=== PATIENT | female | born 1990 | race American Indian/Alaskan Native ===

== ENCOUNTER 2017-01-21 07:37 | Inpatient (IN) | payer OTHER ==
[2017-01-21] MEDS ORDERED: NACL 0.9% 1000 ML 1,000 ML ONE (07:47)
[2017-01-21] MEDS ORDERED: SUBLIMAZE IV ONE (07:56)
[2017-01-21] MEDS ORDERED: NACL 0.9% 1000 ML 1,000 ML IV ONE (07:56)
--- NOTE | 2017-01-21 08:06 | Emergency Department Report ---
ED HPI - General Chief complaint: Vaginal Bleeding Stated complaint: VAGINAL BLEED Time Seen by Provider: 01/21/17 07:56 Source: patient, EMS Mode of arrival: Stretcher Limitations: No Limitations - History of Present Illness Initial comments: 26-year-old female presents to the emergency department via EMS complaining of abdominal pain and vaginal bleeding. Patient states she began having generalized abdominal pain and vaginal bleeding yesterday afternoon. She states she is approximately 8 weeks , . Pain is described as sharp in nature and does not radiate. She denies nausea or vomiting. Upon arrival in the emergency department, the patient had a syncopal episode and was placed into an examination room. There are no other complaints. MD Complaint: abdominal pain, vaginal bleeding -: Sudden, days(s) (1) Location: abdomen Radiation: none Severity: moderate Severity scale (0 -10): 7 Quality: sharp Consistency: constant Improves with: none Worsens with: none Associated symptoms: vaginal bleeding, syncope Vaginal bleeding: heavy :: Yes Number of weeks : 8 OB History - Current : no complications OB History - Previous Pregnancies: no complications Pre- care: none - Related Data : 5 Para: 4 Home Medications Medication Instructions Recorded Confirmed Last Taken No Known Home Medications [No 01/21/17 01/21/17 Unknown Reported Home Medications] Allergies Allergy/AdvReac Type Severity Reaction Status Date / Time No Known Allergies Allergy Verified 01/21/17 07:55 ED Review of Systems ROS: Stated complaint: VAGINAL BLEED Other details as noted in HPI Comment: All other systems reviewed and negative Cardiovascular: syncope Gastrointestinal: abdominal pain Genitourinary: as per HPI (vaginal bleeding) ED Past Medical Hx - Past Medical History Previous Medical History?: Yes Hx Seizures: Yes - Surgical History Past Surgical History?: No - Family History Family history: no significant - Social History Smoking Status: Never Smoker Substance Use Type: None - Medications Home Medications: Home Medications Medication Instructions Recorded Confirmed Last Taken Type No Known Home Medications [No 01/21/17 01/21/17 Unknown History Reported Home Medications] ED Physical Exam - General Limitations: No Limitations General appearance: alert, in distress (mild distress secondary to pain) - Head Head exam: Present: atraumatic, normocephalic - Eye Eye exam: Present: normal appearance, PERRL, EOMI - ENT ENT exam: Present: normal exam, normal orophraynx, mucous membranes moist - Neck Neck exam: Present: normal inspection, full ROM. Absent: tenderness - Respiratory Respiratory exam: Present: normal lung sounds bilaterally. Absent: respiratory distress - Cardiovascular Cardiovascular Exam: Present: normal rhythm, tachycardia, normal heart sounds - GI/Abdominal GI/Abdominal exam: Present: soft, tenderness (mild generalized tenderness to palpation, worse on right), guarding (voluntary), normal bowel sounds. Absent: distended, rebound - Extremities Exam Extremities exam: Present: normal inspection, full ROM. Absent: tenderness - Back Exam Back exam: Present: normal inspection, full ROM. Absent: tenderness - Neurological Exam Neurological exam: Present: alert, oriented X3. Absent: motor sensory deficit - Skin Skin exam: Present: warm, dry, intact ED Course Vital Signs 01/21/17 01/21/17 01/21/17 07:39 07:40 07:45 Temperature 98.2 F Pulse Rate 164 H 120 H Respiratory 20 Rate Blood Pressure 91/46 93/48 O2 Sat by Pulse 95 95 Oximetry 01/21/17 01/21/17 08:00 08:15 Temperature Pulse Rate 122 H 107 H Respiratory 22 17 Rate Blood Pressure 116/61 107/64 O2 Sat by Pulse 99 99 Oximetry - Procedure Description Procedures done: Bedside ultrasound performed by me. Transabdominal pelvic ultrasound performed. Uterus identified, but no definite IUP noted. Pro- placed in the right upper quadrant and a moderate amount of free fluid is identified. ED Medical Decision Making - Lab Data Result diagrams: 01/21/17 08:44 01/21/17 Unknown - Medical Decision Making Patient's presentation and bedside ultrasound findings are concerning for ruptured ectopic . Checking labs. Giving IV fluids. Consulting OB/ [employer]. 0812--discussed the case with Dr. Sequeira, SOCIAL WORK MSW. She states she is getting ready to scrub in for a case. She is recommending resuscitation of the patient and to let her know when the hCG and hemoglobin are back. She is notifying the OR. 0914--patient's hemoglobin is 6.1. 2 units of packed red cells have been ordered. Dr. Sequeira has been updated. Patient is to be taken to the OR. - Differential Diagnosis abdominal pain, ectopic , ovarian torsion Critical Care Time: Yes Critical care time in (mins) excluding proc time.: 45 Critical care attestation.: If time is entered above; I have spent that time in minutes in the direct care of this critically ill patient, excluding procedure time. Critical Care Time: The high probability of a clinically significant, sudden or life threatening deterioration of the cardiovascular and genitourinary system(s) required my full and direct attention, intervention and personal management. The aggregate critical care time was 45 minutes. This time is in addition to time spent performing reported procedures but includes the following: [x] Data Review and interpretation [x] Patient assessment and monitoring of vital signs [x] Documentation [x] Medication orders and management ED Disposition Clinical Impression: Hemoperitoneum due to rupture of right tubal ectopic Disposition: OP ADMITTED IP TO THIS HOSP Is pt being admited?: Yes Condition: Stable Time of Disposition: 09:15
[2017-01-21 08:29] LABS: BUN/Creatinine Ratio 7.69; Calcium 8.6 mg/dL (8.4-10.2); Chloride 97.6 mmol/L (98-107); Potassium 4.2 mmol/L (3.6-5.0)
[2017-01-21 08:47] LABS: INR 1.4 (0.87-1.13)
[2017-01-21 09:02] LABS: Basophils % (Auto) 0.2 % (0.0-1.8); Mean Corpuscular HGB Conc 29 % (30-34); Mean Corpuscular Volume 75 fl (79-97); Platelet Count 257 K/mm3 (140-440); Red Blood Count 2.97 M/mm3 (3.65-5.03); Red Cell Distribution Width 18.4 % (13.2-15.2); White Blood Count 19.1 K/mm3 (4.5-11.0)
[2017-01-21 09:03] LABS: Hematocrit 22.3 % (30.3-42.9); Hemoglobin 6.4 gm/dl (10.1-14.3); Mean Corpuscular Hemoglobin 22 pg (28-32)
[2017-01-21] MEDS ORDERED: NACL 0.9% 500 ML 500 ML IV ONE (09:13)
[2017-01-21] MEDS ORDERED: QUELICIN ONE (09:19)
[2017-01-21] MEDS ORDERED: DIPRIVAN 10 MG/ML IV ONE (09:20)
[2017-01-21] MEDS ORDERED: DILAUDID ONE ×2 (09:20→14:53)
[2017-01-21] MEDS ORDERED: NACL 0.9% IR ONE (09:36)
[2017-01-21] MEDS ORDERED: MARCAINE 0.5% INFILTRATI ONE ×2 (09:36)
--- NOTE | 2017-01-21 09:41 | Anesthesia Consultation ---
Anesthesia Consult and Med Hx Date of service: 01/21/17 - Airway Anesthetic Teeth Evaluation: Good ROM Head & Neck: Adequate Mental/Hyoid Distance: Adequate Mallampati Class: Class II Intubation Access Assessment: Probably Good - Pulmonary Exam CTA: Yes - Cardiac Exam Cardiac Exam: RRR - Pre-Operative Health Status ASA Pre-Surgery Classification: ASA2, Emergency Proposed Anesthetic Plan: General - Pre-Anesthesia Comment Pre-Anesthesia Comments: overbite - Pulmonary Hx Smoking: No - Cardiovascular System Hx Hypertension: No - Central Nervous System Hx Seizures: Yes
--- NOTE | 2017-01-21 09:42 | Anesthesia Day of Surgery ---
Anesthesia Day of Surgery - Day of Surgery Patient Examined: Yes Patient H&P Reviewed: Yes Patient is NPO: No (recent water)
[2017-01-21] MEDS ORDERED: NACL BACTERIOSTATIC INFILTRATI ONE (09:53)
[2017-01-21] MEDS ORDERED: ZOFRAN IV PRN ×2 (10:00→12:43)
[2017-01-21] MEDS ORDERED: ANCEF/STERILE WATER 2 GM/20 ML 2 GM/20 ML SYRINGE IV NR (10:00)
[2017-01-21] MEDS ORDERED: PEPCID IV NR (10:00)
[2017-01-21] MEDS ORDERED: REGLAN IV NR (10:00)
[2017-01-21] MEDS ORDERED: LACTATED RINGERS 1,000 ML IV SCH (10:00)
[2017-01-21] MEDS ORDERED: XYLOCAINE MPF 2% ONE (10:01)
--- NOTE | 2017-01-21 10:13 | Ultrasound Report ---
ULTRASOUND OB LESS THAN 14 WEEKS FETUS ULTRASOUND OB TRANSVAGINAL HISTORY: Abdominal pain during , vaginal bleeding, beta hCG level of 3385. TECHNIQUE: Transabdominal and transvaginal imaging. FINDINGS: The most impressive part of this examination is the large amount of pelvic fluid containing debris. The uterus measures 9 x 5 x 6 cm. The endometrium measures 12 mm. No intrauterine gestational sac is appreciated. The ovaries are not visualized. IMPRESSION: No intrauterine is visualized. There is a large amount of complex fluid in the pelvis. This may represent a ruptured ectopic although it is not clearly identified on ultrasound. Please correlate with the patient's clinical presentation. Close interval followup is recommended. Consider consultation with DERMATOLOGY NURSE PRACTITIONER.
[2017-01-21] MEDS ORDERED: ceFAZolin 2 GM in NACL 0.9% 100 ML IV ONE (10:18)
--- NOTE | 2017-01-21 10:23 | Short Stay Summary ---
Short Stay Documentation Date of service: 01/21/17 Narrative H&P: Patient is a 26 year old who presented to the ED with severe pelvic pain and vaginal bleeding with a known at approximately 8 weeks. Patient states that the pain started on yesterday. - History Past Medical History: seizures (as a child) Past Surgical History: No surgical history Social history: single - Allergies and Medications Current Medications: Allergies No Known Allergies Allergy (Verified 01/21/17 07:55) Home Medications Medication Instructions Recorded Confirmed Last Taken Type No Known Home Medications [No 01/21/17 01/21/17 Unknown History Reported Home Medications] Active Medications Acetaminophen/Hydrocodone Bitart (Preston 5/325) 2 each PO ONCE PRN PRN Reason: Pain, Moderate (4-6) Stop: 01/21/17 11:01 Famotidine (Pepcid) 20 mg IV PREOP NR Stop: 01/21/17 13:00 Last Admin: 01/21/17 09:57 Dose: 20 mg Hydromorphone HCl (Dilaudid) 0.5 mg IV Q10MIN PRN PRN Reason: Pain , Severe (7-10) Stop: 01/21/17 15:00 Lactated Ringer's (Lactated Ringers) 1,000 mls @ 100 mls/hr IV DIRECT KIRBY Cefazolin Sodium 2 gm/ Sodium (Chloride) 100 mls @ 200 mls/hr IV ONCE ONE Stop: 01/21/17 10:47 Metoclopramide HCl (Reglan) 10 mg IV PREOP NR Stop: 01/21/17 15:00 Last Admin: 01/21/17 09:57 Dose: 10 mg - Physical exam General appearance: mild distress Lungs: Clear to auscultation, Normal air movement Breasts: deferred Heart: Regular rate, Normal S1, Normal S2 Gastrointestinal: normal, normoactive bowel sounds Female Genitourinary: normal Rectal Exam: deferred Extremities: No edema - Brief post op/procedure progress note Date of procedure: 01/21/17 Pre-op diagnosis: Ruptured Ectopic Post-op diagnosis: same (with cornual ectopic) Procedure: Laparoscopic Right Salpingectomy with partial resection of cornua Anesthesia: GETA Findings: 2200 cc of blood and clot in pelvis and abdomen, otherwise normal uterus, tubes , ovaries Surgeon: NESTOR JAMIL Estimated blood loss: other (200) Pathology: list (right tube and products of conception) Specimen disposition: to lab Condition: stable - Hospital course Hospital course: Patient continued to show signs of hypotension throughout surgery. will admit overnight for observation and retesting of h&H. - Disposition Condition at discharge: Stable Short Stay Discharge Plan Follow up with: PRIMARY CARE, [Primary Care Provider] - 3-5 Days Prescriptions: Ibuprofen [Motrin] 800 mg PO Q8HR PRN #40 tablet PRN Reason: Pain oxyCODONE /ACETAMINOPHEN [Percocet 5/325] 2 tab PO Q6HR PRN #40 tablet PRN Reason: Pain
--- NOTE | 2017-01-21 10:27 | Admit Criteria Form ---
Admission Criteria Documentation: OBSTETRIC AND GYNECOLOGIC DISEASE GRG Clinical Indications for Admission to Inpatient Care (Place 'X' for any and all applicable criteria): Hospital admission is needed for appropriate care of the patient because of 1 or more of the following (1)(2)(3): [ ]I. Hemodynamic instability, as indicated by 1 or more of the following (1)( 2)(3)(4)(5): [ ]a) Vital signs or other findings not as expected for chronic patient condition or baseline [ ]b) Instability indicated by 1 or more of the following: [ ]i) Hypotension [ ]ii) Symptomatic tachycardia unresponsive to treatment (eg, analgesia, fluids, sedation as indicated) [ ]iii) Inadequate perfusion indicated by 1 or more of the following: [ ]A. Lactic acidosis (greater than 2 mmol/ L) [ ]B. New abnormal capillary refill ( greater than 3 seconds) [ ]C. Reduced urine output [ ]D. New altered mental status [ ]iv) Orthostatic vital sign changes unresponsive to treatment (eg, fluids) [ ]v) Multiple IV fluid boluses required to maintain adequate blood pressure or perfusion [ ]vi) IV inotropic or vasopressor medication required to maintain adequate blood pressure or perfusion [ ]II. Obstetric infection requiring hospitalization indicated by 1 or more of the following(13)(14): [ ]a) Chorioamnionitis [ ]b) Endometritis (except mild endometritis) [ ]c) Pelvic abscess [ ]d) Peritonitis [ ]e) Septic pelvic thrombophlebitis [ ]III. Amniotic fluid or pulmonary embolism(4)(5)(6) [X]IV. Suspected peritonitis or ectopic requiring monitoring beyond scope of 24 hours or observation care(7)(8) [ ]V. compromise requiring hospitalization indicated by ALL of the following(9)(10): [ ]a) compromise indicated by 1 or more of the following(11): [ ]i) Abnormal heart rate monitoring [ ]ii) Abnormal contraction stress test [ ]iii) Abnormal biophysical profile [ ]iv) Abnormal Doppler flow in vessels (ie, Doppler velocimetry) (12) [ ]b) Persistence of compromise indicators during evaluation and observation monitoring [ ]. Ovarian hyperstimulation syndrome requiring hospitalization[A] indicated by ALL of the following(15): [ ]a) Recent ovarian stimulation with gonadotropins, or evidence on ultrasound of spontaneous emergence of large number of ovarian follicles [ ]b) Evidence of severe ovarian hyperstimulation syndrome indicated by 1 or more of the following: [ ]i) Abdominal pain unresponsive to oral therapy [ ]ii) Acute respiratory distress syndrome [ ]iii) Electrolyte imbalance ( eg, hyponatremia, hyperkalemia) [ ]iv) Elevated liver enzymes [ ]v) Evidence of thromboembolism [ ]vi) Hemoconcentration (hematocrit greater than 45 % (0.45)) [ ]vii) Inability to maintain oral intake adequate to prevent hemoconcentration [ ]viii) Marked hypotension from baseline (eg, SBP 20 mmHg below patients usual pressure) [ ]ix) Oliguria or anuria [ ]x) Ovarian torsion [ ]xi) Pleural or pericardial effusion on x-ray or echocardiogram [ ]xii) Rapid increase in serum creatinine to greater than 1.2 mg/dL (106 micromoles/L) or creatinine clearance less than 50 mL/min/1.73m2 (0.84 mL/ sec/1.73m2) [ ]xiii) Ruptured ovarian cyst with hemorrhage [ ]xiv) Severe abdominal pain or peritoneal signs [ ]xv) Tense ascites that cannot be managed with paracentesis in outpatient setting [ ]VII.Pelvic infection requiring hospitalization indicated by 1 or more of the following (16): [ ]a) Outpatient treatment has failed or is not appropriate (eg, inpatient monitoring required) [ ]b) Pelvic abscess [ ]c) Surgical emergency cannot be excluded (eg, rigid abdomen) [ ]d) Vomiting precluding outpatient and observation care management VIII. loss complications requiring inpatient medical treatment indicated by 1 or more of the following (4)(7)(9): [ ]a) Fever [ ]b) Peritonitis [ ]c) Sepsis [ ]d) Severe abdominal pain [ ]IX. or patient requiring monitoring for severe heart failure, pulmonary disease, or other comorbid condition (eg, peripartum cardiomyopathy) (4)(17) [ ]X. patient with rupture of membranes requiring hospitalization indicated by ANY ONE of the following: [ ]a) Chorioamnionitis, cloudy amniotic fluid, or other evidence of infection [ ]b) compromise or other need for monitoring (11) [ ]c) Gestation longer than 23 weeks and ANY ONE of the following: [ ]i) Abnormal (noncephalic) presentation [ ]ii) Inadequate home environment (eg, home too far from hospital, unable to rapidly return to hospital) [ ]d) Temperature greater than 100.4 degrees F (38 degrees C)( oral) [ ]e) Threatened labor requiring monitoring beyond scope (eg, over 24 hours) of observation Care [ ] XI. complications, including severe lacerations, infections, or retained placenta (19) [ ] XII.Uterine bleeding with high-risk features indicated by ANY ONE of the following (4): [ ]a) Active major hemorrhage (eg, hemorrhage) [ ]b) Coagulopathy with active bleeding [ ]c) Gestational trophoblastic disease (eg, molar ) (20 ) [ ]d) (longer than 23 weeks) and ANY ONE of the following: [ ]i) Pain [ ]ii) Placental abruption, known or suspected [ ]iii) Placenta accrete, known or suspected(21) [ ]iv) Placenta previa, known or suspected [ ]v) Vasa previa [ ]e) Severe anemia [ ]XIII. Obstetric or Gynecologic Disease, condition or symptom for which ANY ONE of the following: [ ]a) Emergency and observation care have failed or are not considered appropriate ( Also use General Criteria: Observation Care Criteria as appropriate) [ ]b) Presence of a General Admission Criteria or Pediatric General Admission Criteria The original [facility] content created by [facility] has been revised. The portions of the content which have been revised are identified through the use of italic text or in bold, and [facility] has neither reviewed nor approved the modified material.All other unmodified content is copyright [facility]. Please see references footnoted in the original [facility] edition 2016 Admission Criteria Met: Yes
[2017-01-21] MEDS ORDERED: ANCEF/STERILE WATER 2 GM/20 ML 2 GM/20 ML SYRINGE IV ONE (10:42)
[2017-01-21] MEDS ORDERED: NEO SYNEPHRINE/NS Syringe(OR USE) IV ONE (11:00)
[2017-01-21] MEDS ORDERED: AMIDATE IV ONE (11:00)
[2017-01-21] MEDS ORDERED: NORCO 5/325 PO PRN (11:00)
[2017-01-21] MEDS ORDERED: DILAUDID IV PRN (11:00)
[2017-01-21] MEDS ORDERED: ZEMURON IV ONE (11:00)
[2017-01-21] MEDS ORDERED: NACL 0.9% 100 ML ONE (11:05)
[2017-01-21] MEDS ORDERED: NEOSTIGMINE ONE (12:02)
[2017-01-21] MEDS ORDERED: ZOFRAN ONE (12:02)
[2017-01-21] MEDS ORDERED: ROBINUL ONE (12:02)
[2017-01-21] MEDS ORDERED: HESPAN 500 ML IV ONE (12:29)
--- NOTE | 2017-01-21 12:35 | Post Anesthesia Evaluation ---
- Post Anesthesia Evaluation Patient Participated: Yes Airway Patent: Yes Stable Respiratory Function: Yes Temp > 96.8F: Yes Pain Manageable: Yes Adequeate Hydration: Yes Anesthesia Complications: No Block Receding Appropriately: Not Applicable (Hgb in PACU)
[2017-01-21] MEDS ORDERED: TYLENOL PO PRN (12:43)
[2017-01-21] MEDS ORDERED: D5/0.45NS 1,000 ML IV SCH (13:00)
[2017-01-21 13:16] LABS: Hematocrit 29.3 % (30.3-42.9); Hemoglobin 8.9 gm/dl (10.1-14.3)
[2017-01-21] MEDS: PERCOCET 5/325 PO PRN (20:10)
[2017-01-22] MEDS: PERCOCET 5/325 PO PRN ×3 (01:00→18:57)
[2017-01-22] MEDS: BENADRYL PO PRN ×3 (03:05→18:57)
[2017-01-22 04:10] LABS: Basophils % (Auto) 0.2 % (0.0-1.8); Hematocrit 21.3 % (30.3-42.9); Hemoglobin 6.5 gm/dl (10.1-14.3); Mean Corpuscular HGB Conc 31 % (30-34); Mean Corpuscular Volume 77 fl (79-97); Platelet Count 128 K/mm3 (140-440); Red Blood Count 2.75 M/mm3 (3.65-5.03); White Blood Count 11.2 K/mm3 (4.5-11.0)
[2017-01-22 04:11] LABS: Mean Corpuscular Hemoglobin 24 pg (28-32); Red Cell Distribution Width 20.8 % (13.2-15.2)
[2017-01-22 04:20] LABS: BUN/Creatinine Ratio 14.44; Blood Urea Nitrogen 13 mg/dL (7-17); Calcium 7.5 mg/dL (8.4-10.2); Carbon Dioxide 19 mmol/L (22-30); Chloride 100.8 mmol/L (98-107); Glucose 101 mg/dL (65-100); Potassium 3.9 mmol/L (3.6-5.0); Sodium 133 mmol/L (137-145)
[2017-01-22 04:43] LABS: Anion Gap 17 mmol/L
[2017-01-22] MEDS ORDERED: NACL 0.9% 500 ML 500 ML IV ONE (06:07)
[2017-01-22] MEDS ORDERED: NACL 0.9% 500 ML 500 ML ONE (11:24)
--- NOTE | 2017-01-22 17:33 | Progress Note ---
Assessment and Plan POD 1 s/p emergent laparoscopic salpingectomy for ruptured ectopic. Patient with persistent anemia. Will transfuse 2 additional units or prbcs. Subjective - Subjective Date of service: 01/22/17 Principal diagnosis: Ruptured Ectopic Interval history: Patient had repeat h&h this am which showed drop back to 6.5 hgb. She is symptomatic with dizzy spells and mild nausea Patient reports: appetite normal, voiding normally, dizzy ambulation, ambulating normally Objective - Vital Signs Latest vital signs: Vital Signs Temp Pulse Pulse Resp BP BP 01/22/17 16:15 98.5 F 89 18 118/58 01/22/17 14:25 98.5 F 76 18 85/56 01/22/17 13:03 98.4 F 79 18 100/51 01/22/17 12:33 98.1 F 80 20 103/57 01/22/17 12:18 98.5 F 77 16 106/59 01/22/17 11:44 98.9 F 80 16 95/48 01/22/17 08:00 98.3 F 80 16 102/49 01/22/17 04:50 98.3 F 78 18 110/57 01/22/17 01:00 18 01/22/17 00:50 97.9 F 91 H 20 114/64 01/21/17 20:15 99.4 F 112 H 18 108/64 01/21/17 20:10 18 01/21/17 20:00 78 18 01/21/17 19:24 97.9 F 80 18 117/52 01/21/17 17:50 97.9 F 108 H 18 112/71 Intake and Output 01/22/17 01/22/17 01/22/17 06:59 14:59 22:59 Intake Total 120 0 0 Output Total 600 Balance -480 0 0 Intake: Intake, Free Water 120 Blood Product 0 0 Leukoreduced Red Blood 0 Cells Unit [id number] Leukoreduced Red Blood 0 Cells Unit [id number] Output: Urine 600 Void 600 Other: Total, Output Amount 400 - Exam Lungs: Present: Clear to auscultation, Normal air movement Abdomen: Present: normal appearance, soft, normal bowel sounds Extremities: Present: normal Incision: Present: normal, dry, intact - Labs Labs: Abnormal lab results 01/22/17 01/22/17 Range/Units 03:41 03:41 WBC 11.2 H (4.5-11.0) K/mm3 RBC 2.75 L (3.65-5.03) M/mm3 Hgb 6.5 L (10.1-14.3) gm/dl Hct 21.3 L D (30.3-42.9) % MCV 77 L (79-97) fl MCH 24 L (28-32) pg RDW 20.8 H (13.2-15.2) % Plt Count 128 L (140-440) K/mm3 Seg Neutrophils % 77.8 H (40.0-70.0) % Seg Neutrophils # 8.7 H (1.8-7.7) K/mm3 Sodium 133 L (137-145) mmol/L Carbon Dioxide 19 L D (22-30) mmol/L Glucose 101 H (65-100) mg/dL Calcium 7.5 L (8.4-10.2) mg/dL
[2017-01-22 20:19] LABS: Hematocrit 23.5 % (30.3-42.9); Hemoglobin 7.7 gm/dl (10.1-14.3)
[2017-01-23] MEDS: PERCOCET 5/325 PO PRN ×2 (00:05→08:38)
[2017-01-23] MEDS: BENADRYL PO PRN (00:05)
[2017-01-23 00:33] LABS: Hematocrit 22.2 % (30.3-42.9); Hemoglobin 7.1 gm/dl (10.1-14.3)
--- NOTE | 2017-01-23 13:19 | Progress Note ---
Assessment and Plan POD 2 s/p operative laparoscopy for ruptured ectopic with hemoperitoneum. Patient has received 2 units of blood post procedure and her hgb is now holding a 7.3. She is asymptomatic. Will plan for discharge on today with iron supplementation Subjective - Subjective Date of service: 01/23/17 Principal diagnosis: Ruptured Ectopic Interval history: Patient had repeat h&h this am which showed drop back to 6.5 hgb. She is symptomatic with dizzy spells and mild nausea Patient reports: appetite normal, voiding normally, pain well controlled, ambulating normally, other (patient denies flatus although she has been eating well and without difficulty) Objective - Vital Signs Latest vital signs: Vital Signs Temp Pulse Pulse Resp BP BP 01/23/17 12:00 98.4 F 69 16 103/52 01/23/17 08:38 18 01/23/17 08:00 98.6 F 17 93/49 01/23/17 04:45 98.7 F 65 18 95/52 01/22/17 23:00 98 F 80 18 106/56 01/22/17 20:15 99.5 F 85 18 99/60 01/22/17 18:39 99.5 F 90 18 91/40 01/22/17 17:25 99.1 F 94 H 20 105/53 01/22/17 17:09 99.5 F 83 18 90/60 01/22/17 16:15 98.5 F 89 18 118/58 01/22/17 16:09 99.0 F 88 16 99/45 01/22/17 14:25 98.5 F 76 18 85/56 Intake and Output 01/22/17 01/23/17 01/23/17 22:59 06:59 14:59 Intake Total 180 270 240 Output Total 800 150 Balance -620 120 240 Intake: Oral 240 Intake, Free Water 180 270 Blood Product 0 Leukoreduced Red Blood 0 Cells Unit [id number] Output: Urine 800 150 Void 800 150 Other: Total, Intake Amount 240 Total, Output Amount 400 150 Voiding Method Toilet # Voids Void 1 - Exam Breasts: Present: deferred Cardiovascular: Present: Regular rate, Normal S1, Normal S2 Lungs: Present: Clear to auscultation, Normal air movement Abdomen: Present: normal appearance, soft, normal bowel sounds Uterus: Present: normal Extremities: Present: normal Incision: Present: normal, dry, intact - Labs Labs: Abnormal lab results 01/22/17 01/23/17 Range/Units 20:03 00:17 Hgb 7.7 L 7.1 L (10.1-14.3) gm/dl Hct 23.5 L 22.2 L (30.3-42.9) %
--- NOTE | 2017-01-23 13:32 | Discharge Summary ---
Providers - Providers Date of Admission: 01/21/17 12:43 Date of discharge: 01/23/17 Attending physician: NESTOR JAMIL Primary care physician: NYASIA LUCIANO MD Hospitalization Reason for admission: other (ruptured ectopic ) Procedure: other (see op report) Incision: normal, dry, intact Discharge diagnosis: other (Ruptured Ectopic , Anemia due to acute blood loss) Condition at discharge: Good Disposition: DISCHARGED TO HOME OR SELFCARE Plan - Discharge Medications Prescriptions: Ferrous Sulfate [Feosol 325 MG tab] 325 mg PO BID #60 tablet HYDROcodone/APAP 7.5-325 [Glennie 7.5/325] 1 each PO Q6HR PRN #40 tablet PRN Reason: Pain Ibuprofen [Motrin] 800 mg PO Q8HR PRN #40 tablet PRN Reason: Pain oxyCODONE /ACETAMINOPHEN [Percocet 5/325] 2 tab PO Q6HR PRN #40 tablet PRN Reason: Pain - Provider Discharge Summary Activity: routine, no sex for 6 weeks, no heavy lifting 4 weeks, no strenuous exercise Diet: routine Instructions: routine Additional instructions: [] Smoking cessation referral if applicable(refer to patient education folder for contact #) [] Refer to [facility]'s [facility] Booklet Call your doctor immediately for: * Fever > 100.5 * Heavy vaginal bleeding ( >1 pad per hour) * Severe persistent headache * Shortness of breath * Reddened, hot, painful area to leg or breast * Drainage or odor from incision. * Keep incision clean and dry at all times and follow doctor's instructions regarding bathing/showering - Follow up plan Follow up: PRIMARY CARE, [Primary Care Provider] - 3-5 Days
--- NOTE | 2017-01-23 16:18 | Operative Report ---
PREOPERATIVE DIAGNOSES: Hemoperitoneum with ruptured ectopic . POSTOPERATIVE DIAGNOSES: Hemoperitoneum with ruptured ectopic with right cornual ectopic . PROCEDURE: Right salpingectomy with partial resection of cornual laparoscopic approach. SURGEON: Catherine Sequeira MD ANESTHESIA: General. ESTIMATED BLOOD LOSS: Intraoperative EBL 200 mL. SPECIMENS: Right tube portion of right cornua and products of conception. FINDINGS: Upon entry into the abdomen approximately 200 mL of blood and clot were ____ in the pelvis and abdomen. Otherwise normal uterus, tubes and ovaries on the left and in particular the right ovary was also normal. DESCRIPTION OF PROCEDURE: The patient was taken to the OR with IV running and in place. She was identified as herself. She was given general anesthesia without difficulty and placed in dorsal lithotomy position. She was then prepped and draped in normal sterile fashion. Attention was then turned to the patient's vagina. A speculum was placed into the vagina. The cervix was visualized and grasped with a tenaculum. [place] cannula was placed into the cervix to provide a means to manipulate the uterus. Surgeon's gloves were changed. Attention was turned to the patient's abdomen. A small incision was made in the umbilicus. Through this incision, a 5-mm trocar was placed. The laparoscope confirmed intraabdominal placement and findings were as noted earlier with large blood clots, lying on the omentum as well as blood in both upper portions of the abdomen. Under direct visualization, additional ports were placed through the left lower quadrant and one in the midline just above the symphysis pubis. With manipulation of the uterus, a large suction was placed into the peritoneum and there was some blood. Lots of blood was sucked out. Initially approximately 1000 mL was sucked out and while on the procedure by another 1000 mL. In any case, the ectopic was identified to be in the right cornual region near the juncture of the tube and the uterus. It was noted to be ruptured and actively bleeding. Using a size 10 LigaSure device, the area underneath the broad ligament and the tube was identified, cauterized, and transected. Then portions of the actual cone of the uterus were identified, grasped, and transected and sealed, the ectopic was completely detached. Following this, the Endopouch was used to remove the Endopouch out through the left lower quadrant port. There was some bleeding noted at the end of this portion of procedure in the area where the ectopic had been removed. Therefore, the V-Loc suture was used to oversew the corner of the uterus until there was excellent hemostasis noted. At this point, additional blood was sucked out of the gutters and the patient in reverse Trendelenburg from the pelvis itself. This was again additional 100 mL or so. The left uterus and the left tube and ovary were normal and there was excellent hemostasis at the end of this portion of the procedure. All instruments were removed from the patient's abdomen and pelvis. The left incision was closed in 2 layers with 0 Vicryl and then 4-0 Monocryl. The other suture incisions were also closed with 4-0 Monocryl. The patient had received 2 units of blood intraoperatively and was found to be stable, although at some point there was difficulty maintaining her blood pressures in the higher range. In any case, the patient tolerated the procedure well. She was awakened and taken to recovery in stable condition. [facility]# [id number]
[2017-01-23 17:22] VITALS: BP 113/64
== END 2017-01-23 17:00 | disposition home or self-care (01) | DRG 777 ==
LOC: ED 07:37 → OR 09:54 → OB 12:43
PROVIDERS: ADMIT Obstetrics & Gynecology; ATTEND Obstetrics & Gynecology
PROC: 0UT54ZZ Resection of Right Fallopian Tube, Percutaneous Endoscopic Approach (ICD-10-PCS; principal; 2017-01-23)
PROC: 30233N1 Transfusion of Nonautologous Red Blood Cells into Peripheral Vein, Percutaneous Approach (ICD-10-PCS; 2017-01-23)
PROC: 0UB94ZZ Excision of Uterus, Percutaneous Endoscopic Approach (ICD-10-PCS; 2017-01-23)
DX: O00.80 Other ectopic pregnancy without intrauterine pregnancy (principal); K66.1 Hemoperitoneum; D62 Acute posthemorrhagic anemia; O26.891 Other specified pregnancy related conditions, first trimester; O99.011 Anemia complicating pregnancy, first trimester; Z3A.08 8 weeks gestation of pregnancy
CPT/HCPCS: 36415; 76801; 76817; 80048; 84702; 85014; 85018; 85025; 85610; 86850; 86900; 86901; 86920; 88305; 96374; J0330; J0690; J1170; J2370; J2405; J2704; J2710; J2765; J3010; J7030; J7040; J7120; P9016